=== PATIENT | female | born 1985 | race Caucasian/White ===

== ENCOUNTER → 2021-04-02 12:08 | Outpatient (CLI) | payer BC, SELFPAY ==
--- NOTE | 2021-04-02 12:22 | US_ITS ---
STUDY: ULTRASOUND BREAST - RIGHT REASON FOR EXAM: Female, 36 years old. Palpable lump in the right breast. TECHNIQUE: Axial and longitudinal images of the RIGHT breast were performed with a high resolution ultrasound transducer. # OF IMAGES: 20 COMPARISON: Comparison is made with prior mammogram than earlier today. FINDINGS: RIGHT Breast: The palpable abnormality corresponds to a 2.6 cm x 3.1 cm x 2.2 cm solid heterogeneous mass with increased peripheral vascularization. Adjacent to this, there is a similar appearing nodule measuring 2.9 cm x 2.9 cm x 2.9 cm. Biopsy is recommended. US/Breast Limited Unilateral IMPRESSION: The palpable abnormality corresponds to 2 adjacent solid heterogeneous masses each measuring approximately 2.69 x 3.17 x 3.2 cm. Biopsy recommended. ASSESSMENT CATEGORY: BIRADS Category 4: Suspicious - Biopsy Should Be Considered. A letter regarding these results will be sent to the patient by the facility within 30 days. Electronically Signed: Brodie Moreno MD at 14:24 EDT , Service support ,
--- NOTE | 2021-04-02 12:22 | BI_ITS ---
MAMMOGRAPHY - BILATERAL DIAGNOSTIC REASON FOR EXAM: Female, 36 years old. Right breast lump. Remote right excisional breast biopsy. PERTINENT HISTORY: Non-contributory. TECHNIQUE: Digital bilateral breast miguel (3D mammographic acquisition) in the CC and MLO projections. 2-D mediolateral oblique (MLO) and craniocaudad (CC) views of both breasts were obtained. CAD: Full Field Digital Mammography with Computer Added Detection was performed. COMPARISON: No comparison mammograms available at this time. If any prior films become available, an addendum to this report can be generated. FINDINGS: Breast Composition: The breasts are heterogeneously dense, which may obscure small masses. The palpable normality corresponds to a 3.3 cm Bard 3.3 cm well-defined nodule in the upper lateral aspect of the right breast. Microcalcifications are seen within the nodule in the axillary region of the right breast suggestive of calcifying fibroadenoma. No other significant abnormalities are identified. BI/DIAG MAMM W/CAD, BILAT IMPRESSION: 3.3 cm x 3.3 cm nodule in the upper lateral aspect of the right breast as described. Correlation with ultrasound is recommended. ASSESSMENT CATEGORY: BIRADS Category 0: Incomplete. Need additional imaging evaluation. A letter regarding these results will be sent to the patient by the facility within 30 days. Approximately 10% of breast cancers are not detected by mammography. A normal mammogram should not delay biopsy of a clinically suspicious abnormality. Electronically Signed: Brodie Moreno MD at 13:28 EDT , Service support ,
== END ==
PROVIDERS: Visit Provider Obstetrics & Gynecology
DX: N63.10 Unspecified lump in the right breast, unspecified quadrant (principal)
CPT/HCPCS: 76642; 77062; 77066; G0279

== ENCOUNTER → 2021-04-04 11:48 | Outpatient (CLI) | payer BC, SELFPAY ==
--- NOTE | 2021-04-04 | IMM_PTH ---
PATIENT: FRANCISCO SMITH LOC: [facility] U#:[id number] AGE/SX: 40/F ROOM: RE04/04/[address]: Dr. Alisson Asif MD : 1985 BED: DIS: SPEC #: [id number] RECD: 04/05/21 12:32 STATUS: JUAN REJesús #: [id number] RORY: 04/04/21 00:[address]: Alisson Asif DEPT: IMMUNOHISTOCHEMISTRY RECD BY: Ruth Alan Tissues: Right breast, NOS Procedures: SMA (add) CD31 (add) CD34 (add) CK19 (add) CK7 (add) CK8 (add) DESMIN (add) NAHUM (add) MACRO (add) MAMM (add) P53 (add) Vimentin (add) FACTOR VIII (add) Pankeratin (initial) GATA3 (add) S-100 (add) PHYSICIAN & INSTITUTION [place] [address] SPECIMEN INFORMATION: Tissue Source: Right breast Clinical Info: Right breast mass Specimen Number: [id number] CPT code: 92998, 43690 x15 METHODOLOGY: Deparaffinized sections of prefer/formalin-fixed tissue or PAP/DQ stained slides are incubated with monoclonal/polyclonal antibodies/oligonucleotide probes. Localization is made via biotin free immunoperoxidase method. Appropriate controls are performed and reacted as expected. Results on target cell population are indicated in the following table: RESULTS: ANTIBODY / CLONE RESULT AE1-3 (AE1/AE3/PCK26) positive CK7 (OV-TL12/30) negative CK8 (42vnstK24) negative CK19 (A53-B/A2.26) positive, dim Vimentin (V9) negative CD31 (HAROON/70A) negative Factor VIII (R Ag) negative CD34 (QBEnd-10) negative Macro (HAM-56) negative Actin (1A4) negative Desmin (CE-R-11) negative S-100 (4C4.9) negative NAHUM (E29) negative P53 (DO-7) negative GATA3 (L50-823) negative Mammaglobin (31A5) negative These tests were developed and their performance characteristics determined by [facility]. They may not have been cleared or approved by the U.[place]. Food and Drug Administration. The FDA has determined that such clearance or approval is not necessary. The above immunohistochemical/dualISH markers are ordered and reviewed by the Pathologist. INTERPRETATION: Right breast, ultrasound-guided needle core biopsy: Consistent with fibrosis and fat necrosis. AM:lucy 04/16/2021 Case has been reviewed in consultation with Dr. Loredo who concurs with the above diagnosis. IDC:SJ
--- NOTE | 2021-04-04 08:45 | BRBX_PTH ---
PATIENT: FRANCISCO SMITH LOC: [facility] U#:[id number] AGE/SX: 40/F ROOM: RE04/04/[address]: Dr. Alisson Asif MD : 1985 BED: DIS: SPEC #: [id number] RECD: 04/04/21 11:02 STATUS: JUAN OMAIRA #: [id number] RORY: 04/04/21 08:[address]: Alisson Asif DEPT: SURGICAL PATHOLOGY RECD BY: Victoria Powell Tissues: Right breast, NOS Procedures: Surgery Specimen Level IV HEADER OPERATION: Ultrasound-guided needle core biopsy right breast PRE-OP DIAGNOSIS: Right breast mass TISSUE SUBMITTED: Right breast biopsy ISCHEMIC TIME: <1 minute FIXATION TIME: 10.5 hours MICROSCOPIC DIAGNOSIS Right breast mass, ultrasound-guided core biopsy: Fat necrosis and fibrosis. No evidence of malignancy. AM:lucy 04/16/2021 COMMENT Immunohistochemistry ([id number]) supports the above diagnosis. Case is seen in consultation with of [facility] who concurs with the diagnosis. Complete report viewable in chart. Case has been reviewed in consultation with Dr. Loredo who concurs with the above diagnosis. IDC:SJ MICROSCOPIC DESCRIPTION Slides are reviewed. GROSS DESCRIPTION Received in fixative is one container labeled with the patient's name and designated right breast. The specimen consists of multiple elongated fragments of garcia-yellow fibroadipose tissue that in aggregate measure 1 x 0.5 x 0.1 cm. The entire specimen is submitted in one cassette. / SJ:rg 04/04/21 TC:5 CPT: 84193
== END ==
PROVIDERS: Referring Provider Surgery; Visit Provider Surgery
DX: N63.10 Unspecified lump in the right breast, unspecified quadrant (principal); D24.9 Benign neoplasm of unspecified breast
CPT/HCPCS: 88305; 88341; 88342

== ENCOUNTER 2021-06-06 11:21 | Day surgery (SDC) | payer BC, SELFPAY ==
[2021-06-06 11:54] LABS: Internal QC Validated? YES +Cl - CLEAR BKGD
[2021-06-06 11:57] LABS: Pregnancy, Urine Negative Negative
[2021-06-06 11:59] VITALS: BP 147/98; PULSE 89; RESP 17; TEMP 37.1; O2SAT 100
[2021-06-06] MEDS: Lactated Ringers 1,000 ML 15 ML IV (12:39)
--- NOTE | 2021-06-06 13:00 | BREAST_PTH ---
PATIENT: FRANCISCO SMITH LOC: [facility] [place] U#:[id number] AGE/SX: 36/F ROOM: RE06/06/[address]: Dr. Alisson Asif MD : 1985 BED: DIS: 06/06/2021 SPEC #: [id number] RECD: 06/06/21 15:50 STATUS: JUAN OMAIRA #: [id number] RORY: 06/06/21 13:[address]: Alisson Asif DEPT: SURGICAL PATHOLOGY RECD BY: Victoria Powell Tissues: Right breast, NOS Procedures: Surgery Specimen Level V HEADER OPERATION: Breast ultrasound-guided wire localization and excisional biopsy PRE-OP DIAGNOSIS: Right breast mass TISSUE SUBMITTED: Right breast mass/possible cyst/fibroadenoma, long suture - lateral, short suture - superior MICROSCOPIC DIAGNOSIS Right breast, lumpectomy: Consistent with infarcted fibroadenoma with associated Banal microcalcifications and reparative and reactive change. Benign lymphoid tissue. No evidence of malignancy. AM:lucy 06/11/2021 COMMENT Case has been reviewed in consultation with Dr. Loredo who concurs with the above diagnosis. IDC:SJ MICROSCOPIC DESCRIPTION Slides are reviewed. GROSS DESCRIPTION Received fresh and then post fixed in formalin is one container labeled with the patient's name and designated right breast mass/possible cyst/fibroadenoma. The specimen consists of a piece of fibroadipose tissue with needle localization measuring 5 x 3 x 3 cm. The specimen is oriented as follows: long suture - lateral, short suture - superior. The specimen is inked as follows: anterior - yellow, posterior - black, superior - blue, inferior - green, medial - red and lateral - orange. Serial sections reveal a focal hemorrhagic area consistent with previous biopsy site and measuring 0.5 cm in greatest dimension. No definite mass lesion is identified. Sections reveal garcia-yellow adipose cut surfaces mixed with garcia-white fibrous areas. The entire specimen is submitted in 13 cassettes. Cassette 1 contains the most medial portion of the specimen and cassette 13 contains the most lateral portion of the specimen. Sections are submitted after additional fixation. / ERICA:lucy 06/07/2021 TC:1 CPT: 47482
--- NOTE | 2021-06-06 13:19 | HP.PCM.SX_ITS ---
HPI - General HPI Narrative FRANCISCO SMITH, is a 36 F who presents for excision of right breast biopsy. Patient previously had a biopsy done showed Fat necrosis and fibrosis.No evidence of malignancy?this is discordant with imaging recommend excisional biopsy. Patient was agreeable with plan. Patient previously had an excision of a fibroadenoma in that area previously. [facility] Medical History Abnormal mammogram of right breast Alcohol use Anxiety Asthma Breast lump COVID Heartburn Low iron Non-smoker Home Medications NK 04/04/21 [History Last Taken Unknown] Allergy/AdvReac Type Severity Reaction Status Date / Time No Known Allergies Allergy Unverified 06/06/21 11:49 Family History (Updated 04/04/21 @ 08:23 by Fatmata Villanueva) Father Hypertension Mother Hypertension Surgical History (Updated 04/04/21 @ 08:23 by Fatmata Villanueva) History of History of excision of mass Social History Smoking Status: Never smoker Vital Signs Vital Signs Vital Signs: 06/06/21 11:59 Temperature 98.7 F Temperature Source Temporal Pulse Rate 89 Respiratory Rate 17 Respiratory Pattern Normal Blood Pressure 147/98 H Blood Pressure Mean 114 Blood Pressure Source Monitor Blood Pressure Position Semi-Fowlers Blood Pressure Location Left Arm Pulse Ox 100 Oxygen Delivery Method Room Air Physical Exam Const alert, oriented x3 and no apparent distress HEENT normocephalic and head/scalp atraumatic Chest Chest Narrative: right breast mass at 9:00 3-4 cm Breast/Axilla Inspection: abnormal inspection of the axilla Resp normal respiratory effort Cardio regular rate GI soft to palpation and non-tender; Negative for non-distended Palpation: Negative for guarding Extremity no clubbing, cyanosis or edema Neuro CN's II-XII intact bilaterally Psych mental status grossly normal Results Lab / Micro Data Labs: Laboratory Results - last 24 hr 06/06/21 11:45: Urine Test Negative Assessment & Plan Assessment/Plan (1) Breast mass, right: PLAN: Plan for excisional right breast biopsy. Discussed procedure with patient including risk but not limited to bleeding, infection, need for further surgery, and anesthesia. Patient had no further question this time. Alisson Asif M.D. Pager: [phone] [facility] [address] [place] [address], [facility], [address] [place] [address] Office: [phone] Procedure Criteria Type of Procedure Procedure Type: Elective Elective Risks - COVID COVID Risk Discussion: The surgeon/proceduralist and patient have discussed in detail the risk of exposure to and/or potential harm posed by the COVID-19 virus with having a surgery/procedure at this time versus the risk of delaying the surgery/procedure. It is not possible to know either the risk of delaying the surgery or procedure or chance of getting an infection with perfect accuracy, but a joint decision was made between the patient and the surgeon/proceduralist to proceed at this time with the scheduled surgery/procedure as indicated on the consent form.
--- NOTE | 2021-06-06 14:00 | BI_ITS ---
SURGICAL BREAST SPECIMEN RADIOGRAPH CLINICAL: Document presence of tissue clip marker in biopsy specimen. FINDINGS: Specimen shows presence of tissue clip marker. Electronically Signed: Brodie Moreno MD at 15:38 EST , Service support , BI/Breast Biopsy Specimen
[2021-06-06] MEDS: Bupivacaine Mpf 0.5% 30 ML VIAL (14:15)
--- NOTE | 2021-06-06 15:08 | OP.PCM_ITS ---
Report of Operation Date of Procedure: 06/06/21 Pre-Operative Diagnosis: Right breast mass Post-Operative Diagnosis: Right breast mass Surgery/Procedure Performed:: Excisional biopsy of right breast mass at 9:00 Description of Surgical Findings:: Right breast mass/possible fibroadenoma/ cyst Surgeon: Alisson Asif Type of Anesthesia: General/Supplemental Anesthesiologist: Eris Rodriguez Special Medications: Ancef 2 g IV x1 Specimen's removed: Right breast mass/possible cyst/possible fibroadenoma Estimated Blood Loss (mL): < 10 cc Description of Procedure: Indications: 36-year-old female had a right breast biopsy which showed fat necrosis no malignancy. This was discordant with imaging plan for excisional biopsy. Description of procedure. Patient brought into the operating room placed supine on the operating table. Timeout was completed verifying correct patient, procedure, site, positioning, special equipment prior to beginning procedure. General anesthesia was induced. The right breast was prepped draped in usual st erile fashion. An ultrasound was used for needle localization with a Kopan's needle. A radial incision was made directly overlying the mass. This was dissected with electrocautery. This did appear to be somewhat cystic as we did have some cystic fluid during some of the dissection, which was suctioned. Mass also appeared to be consistant with fibroadenoma as well. This was completely excised and oriented and sent to pathology. The cavity was irrigated and hemostasis was assured. Wound was closed with 3-0 Vicryl subdermal sutures and skin was closed with 4-0 Monocryl and Steri-Strips. Patient was extubated. Patient tolerated procedure well and sent to the postanesthesia care in stable condition. Complications none
--- NOTE | 2021-06-06 15:13 | EX.PCM.DISCH ---
Discharge Instructions Diet Discharge Diet: No restrictions Activity Discharge Activity: May Not Drive (while taking narcotic pain medications.) May shower in (days): 1 Lifting Restrictions: no lifting > 15 lbs on side of surgery for 2 days Additional Activity Instructions:: Wear supportive bra at night for the first 2 nights as well as during the day. Dressing / Incision Call your doctor if your incision/area has: Continuous Slow Oozing, Sudden Increased Bleeding, Increased Pain/ Swelling, Increased Redness, Foul Smelling Discharge and Swelling at the incision site Call your doctor if you observe: Fever of 101 or Higher Remove Dressing in: 2 days Follow Up Care Please Follow Up With: Alisson Asif MD When: Please call [phone] for an appointment to be seen in 2 week. Test Results: Test results from this visit will be discussed in further detail at your follow-up appointment, if applicable. Discharge Plan Admission Attending Provider: Alisson Asif Discharge Orders/Prescriptions Prescriptions: New hydrocodone-acetaminophen 5-325 mg tablet 1 tab PO Q6H PRN (Reason: pain) 3 Days Qty: 7 RF: 0 Disposition Disposition (needs filled in before D/C Order can be placed): Home, Self Care
[2021-06-06 15:30] VITALS: BP 129/91; BP 147/98; PULSE 98; RESP 18; TEMP 36.1; O2SAT 96
[2021-06-06 15:45] VITALS: BP 132/91; BP 147/98; PULSE 110; RESP 18; O2SAT 96
[2021-06-06 16:00] VITALS: BP 134/92; BP 147/98; PULSE 100; RESP 18; TEMP 36.1; O2SAT 100
[2021-06-06 16:39] VITALS: BP 147/98
== END 2021-06-06 23:59 | disposition home or self-care (01) ==
LOC: SDC 11:22 → AC 11:24
PROVIDERS: Anesthesiology; Referring Provider Surgery; Visit Provider Surgery
PROC: (CPT 19120; principal; 2021-06-06 12:45)
DX: D24.1 Benign neoplasm of right breast (principal); Z86.16 Personal history of COVID-19
CPT/HCPCS: 19120; 00400; 76098; 81025; 88307; J7120; J2405

== ENCOUNTER 2021-06-27 10:27 | Outpatient (CLI) | payer BC, SELFPAY ==
[2021-07-01 21:49] LABS: HPV APTIMA, High Risk Negative (Negative)
== END 2021-06-27 23:59 | disposition short-term general hospital (02) ==
PROVIDERS: Visit Provider Obstetrics & Gynecology
DX: Z12.4 Encounter for screening for malignant neoplasm of cervix (principal)
CPT/HCPCS: 87624; 88175; G0145